=== PATIENT | female | born 2000 | race Caucasian/White ===

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

== ENCOUNTER 2023-02-05 22:07 | Emergency (ER) | payer OTHER ==
[~2023-02-05] VITALS: Ht 154.9 cm; Wt 91.2 kg
[2023-02-05 22:19] VITALS: BP 117/75; PULSE 66; RESP 16; TEMP 98.3; O2SAT 97
--- NOTE | 2023-02-05 22:21 | NUR ---
TO LOBBY A/W BED AMBULATORY
[2023-02-05] MEDS ORDERED: KETOROLAC 30 MG/ML VIAL IM ONE (23:00)
[2023-02-05 23:29] LABS: BASOPHILS % (AUTO) 0.5 % (0.0-2.0); EOSINOPHILS # (AUTO) 0.2 K/uL (0-0.4); EOSINOPHILS % (AUTO) 2.8 % (0.0-4.0); HEMATOCRIT 36.7 % (36-48); HEMOGLOBIN 12.1 g/dL (12.0-16.0); LYMPHOCYTES # (AUTO) 2.5 K/uL (2.5-16.5); LYMPHOCYTES % (AUTO) 34.1 % (20.5-51.1); MEAN CORPUSCULAR HEMOGLOBIN 27 pg (27-31); MEAN CORPUSCULAR HGB CONC 33 g/dL (33-37); MEAN CORPUSCULAR VOLUME 83.1 fL (80-94); MONOCYTES # (AUTO) 0.5 K/uL (0.8-1.0); NEUTROPHILS # (AUTO) 4.1 K/uL (1.8-7.7); NEUTROPHILS % (AUTO) 55.6 % (42.2-75.2); PLATELET COUNT (AUTO) 277 K/uL (140-450); RED BLOOD CELL COUNT(AUTO) 4.42 MIL/uL (4.20-5.40); RED CELL DISTRIBUTION WIDTH 14.9 % (11.6-13.7); WHITE BLOOD COUNT (AUTO) 7.5 K/uL (4.8-10.8)
[2023-02-05 23:34] LABS: ALBUMIN 3.3 g/dL (3.4-5.0); ANION GAP 9.6 (8-16); CARBON DIOXIDE 29.3 mmol/L (21-32); CREATININE 0.9 mg/dL (0.6-1.3); POTASSIUM 3.9 mmol/L (3.5-5.1); TOTAL BILIRUBIN 0.4 mg/dL (0.0-1.0)
[2023-02-06] MEDS ORDERED: KETOROLAC 30 MG/ML VIAL ONE (00:16)
[2023-02-06] MEDS ORDERED: CEFP200T20 PO (02:03)
[2023-02-06] MEDS ORDERED: IBUP-2213 PO (02:03)
[2023-02-06 02:15] VITALS: BP 117/75; PULSE 66; RESP 16; TEMP 98.3; O2SAT 97
--- NOTE | 2023-02-06 02:15 | NUR ---
Patient discharged with v/s stable. Written and verbal after care instructions given and explained. Patient alert, oriented and verbalized understanding of instructions. Ambulatory with steady gait. All questions addressed prior to discharge. ID band removed. Patient advised to follow up with PMD. Rx of CEFPODOXIME, IBUPROFEN given. Patient educated on indication of medication including possible reaction and side effects. Opportunity to ask questions provided and answered.
== END 2023-02-06 02:15 | disposition home or self-care (01) ==
LOC: MED 22:07
DX: N39.0 Urinary tract infection, site not specified (principal); R19.7 Diarrhea, unspecified; Z88.0 Allergy status to penicillin; Z88.8 Allergy status to other drugs, medicaments and biological substances; Z79.899 Other long term (current) drug therapy
CPT/HCPCS: 36415; 76705; 80053; 81002; 81025; 83690; 85025; 99284; J1885; Q0092